=== PATIENT | female | born 1960 | race Caucasian/White ===

== ENCOUNTER 2025-06-01 11:51 | Day surgery (SDC) | payer OTHER, MEDICARE ==
[2025-05-27 11:51] VITALS: BMI 26.9
[2025-06-01] MEDS ORDERED: LIDOCAINE 1% P/F 10 MG/ML VIAL ONE (12:03)
[2025-06-01] MEDS ORDERED: BSS (NA/CA/MG/K) BALANCED SALT SOLUTION OPHTH SOLN 15 ML BOTTLE ONE (12:03)
[2025-06-01] MEDS ORDERED: CARBACHOL 0.01% INTRA-OCULAR 1.5 ML VIAL ONE (12:03)
[2025-06-01] MEDS ORDERED: TETRACAINE 0.5% OPHTH SOLN 2 ML BOTTLE ONE (12:03)
[2025-06-01] MEDS: PHENYLEPHRINE 2.5% OPTHALMIC DROP 2ML BOTTLE ONE (12:10)
[2025-06-01] MEDS: CIPROFLOXACIN 0.3% EYE DROPS 5 ML BOTTLE ONE (12:10)
[2025-06-01] MEDS: CYCLOPENTOLATE 2% OPHTH SOLN 2 ML BOTTLE ONE (12:10)
[2025-06-01] MEDS: TROPICAMIDE 1% 3 ML EYE DROPS ONE (12:10)
[2025-06-01] MEDS ORDERED: MIDAZOLAM HCL 2 MG/2 ML SINGLE DOSE VIAL ONE ×2 (12:34→13:21)
[2025-06-01] MEDS ORDERED: ACETAMINOPHEN 1000 MG/100 ML BAG IVPB ONE (14:19)
[2025-06-01] MEDS ORDERED: ACETAMINOPHEN INJECTION 100 ML ONE (14:20)
[2025-06-01] MEDS ORDERED: ACETAMINOPHEN 500 MG TABLET (FP) PO ONE (14:31)
[2025-06-01] MEDS: ACETAMINOPHEN 500 MG TABLET (FP) PO ONE (14:35)
[2025-06-01] MEDS ORDERED: ACETAMINOPHEN 500 MG TABLET (FP) ONE (14:37)
[2025-06-01 15:10] VITALS: TEMP 97.8
[2025-06-01 15:23] VITALS: BP 120/72; PULSE 74; RESP 19
== END 2025-06-01 15:00 | disposition home or self-care (01) ==
LOC: FASU 11:51
PROVIDERS: ATTEND Ophthalmology
PROC: 08RK3JZ Replacement of Left Lens with Synthetic Substitute, Percutaneous Approach (ICD-10-PCS; principal; 2025-06-01 14:01)
DX: H26.8 Other specified cataract (principal)
CPT/HCPCS: 66984; V2632